=== PATIENT | female | born 1955 | race Two or more races ===

== ENCOUNTER 2020-07-18 14:20 | Outpatient (CLI) | payer BC | END 2020-07-18 23:59 | disposition home or self-care (01) | LOC: MSC 14:20 | PROVIDERS: ATTEND Internal Medicine | DX: D22.9 Melanocytic nevi, unspecified (principal); R53.83 Other fatigue; M19.90 Unspecified osteoarthritis, unspecified site; Z86.69 Personal history of other diseases of the nervous system and sense organs ==

== ENCOUNTER 2020-09-14 08:45 | Outpatient (CLI) | payer BC, MEDICAID | END 2020-09-14 23:59 | disposition home or self-care (01) | LOC: MSC 08:45 | PROVIDERS: ATTEND Internal Medicine | DX: R10.9 Unspecified abdominal pain (principal); D22.9 Melanocytic nevi, unspecified; R53.83 Other fatigue; M19.90 Unspecified osteoarthritis, unspecified site; Z86.69 Personal history of other diseases of the nervous system and sense organs ==

== ENCOUNTER 2020-12-01 09:09 | Outpatient (CLI) | payer BC | END 2020-12-01 23:59 | disposition home or self-care (01) | LOC: MSC 09:09 | PROVIDERS: ATTEND Internal Medicine | DX: R10.12 Left upper quadrant pain (principal) ==